=== PATIENT | male | born 1965 | race Caucasian/White ===

== ENCOUNTER → 2024-08-03 07:51 | Outpatient (BNVA) | payer MEDICAID, SELFPAY | PROVIDERS: Visit Provider Nurse Practitioner Family | DX: S60.921A Unspecified superficial injury of right hand, initial encounter (principal); D48.5 Neoplasm of uncertain behavior of skin; L57.0 Actinic keratosis; X58.XXXA Exposure to other specified factors, initial encounter | CPT/HCPCS: 11104; 17000; 99204 ==